=== PATIENT | male | born 1940 ===

== ENCOUNTER → 2019-05-17 11:37 | Outpatient (CLI) | payer OTHER, SELFPAY ==
--- NOTE | 2019-05-17 11:42 | DI.RAD.S_ITS ---
PROCEDURE: XR CHEST 2V INDICATIONS: cough x3 weeks; r/o pneumonia TECHNIQUE: 2 views of the chest were acquired. COMPARISON: None. FINDINGS: Surgical changes and devices: None. Lungs and pleura: Lungs are clear. No pleural effusions or pneumothorax. Mediastinum: Mediastinal contours are normal. Heart size is normal. Bones and chest wall: No suspicious bony abnormalities. Bridging osteophytes noted along the thoracic spine Soft tissues appear unremarkable. IMPRESSION: No pneumonia found. Incidental note is made of bridging osteophytes along the thoracic spine anteriorly. Dictated by: Lito Rojas M.D. on 05/17/2019 at 12:07 Approved by: Lito Rojas M.D. on 05/17/2019 at 12:07
== END ==
PROVIDERS: Visit Provider Physician Assistant
DX: R05 Cough (principal); M25.78 Osteophyte, vertebrae
CPT/HCPCS: 71046